=== PATIENT | female | born 1995 | race Native Hawaiian/Other Pacific Islander ===

== ENCOUNTER 2017-01-28 19:41 | Emergency (ER) | payer OTHER ==
[~2017-01-28] VITALS: Ht 165.1 cm; Wt 42.5 kg
[~2017-01-28 19:41] MED LIST: CLAR10TA7 PO
[2017-01-28 20:04] VITALS: BP 117/80; PULSE 69; RESP 16; TEMP 98.3; O2SAT 98
[2017-01-28] MEDS ORDERED: BUPR100T4 PO (20:15)
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
[2017-01-28] MEDS ORDERED: SODIUM CHLORIDE 0.9% FLUSH 10 ML FLUSH IVF PRN (20:30)
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
[2017-01-28 21:49] VITALS: BP 118/82
== END 2017-01-28 22:11 | disposition home or self-care (01) ==
LOC: PHEFT 19:41
DX: S06.0X0A Concussion without loss of consciousness, initial encounter (principal); V89.9XXA Person injured in unspecified vehicle accident, initial encounter; Y93.89 Activity, other specified; Y92.838 Other recreation area as the place of occurrence of the external cause; Y99.8 Other external cause status
CPT/HCPCS: 70450

== ENCOUNTER 2017-02-01 20:44 | Emergency (ER) | payer OTHER ==
[~2017-02-01] VITALS: Ht 165.1 cm; Wt 45.0 kg
[~2017-02-01 20:44] MED LIST changes: +BUPR100T4 PO; -CLAR10TA7 PO
[2017-02-01 20:45] VITALS: BP 123/76; PULSE 88; RESP 16; TEMP 98.3; O2SAT 98
== END 2017-02-02 00:06 | disposition left against medical advice (07) ==
LOC: NED 20:44
DX: R68.89 Other general symptoms and signs (principal)
CPT/HCPCS: 99281